=== PATIENT | male | born 1955 | race Caucasian/White ===

== ENCOUNTER 2017-12-09 08:29 | Outpatient (REF) | payer MEDICAID, SELFPAY ==
[2017-12-09 18:42] LABS: HCT 48.7 % (40.0-50.0); HGB 17.4 g/dL (13.5-17.5); Mean Corp. HGB Concentration 35.7 g/dL (32.0-36.0); Mean Corpuscular Hemoglobin 32.6 pg (27.0-33.0); Mean Corpuscular Volume 91.4 fL (80-95); Mean Platelet Volume 10.4 fL (8.0-11.0); Platelet Count 174 x1000/uL (130-400); RBC 5.33 m/cumm (4.50-6.00); White Blood Cell Count 5.02 k/cumm (4.4-10.8)
[2017-12-09 19:31] LABS: ALT 44 U/L (12-78); AST 19 U/L (15-37); Alkaline Phosphatase 89 U/L (46-116); Anion Gap 6.9 mmol/L (3-11); BUN 15 mg/dL (7-18); Bilirubin, Total 0.3 mg/dL (0.2-1.0); CO2 33.1 mmol/L (21.0-32.0); CREATININE 1.16 mg/dL (0.70-1.30); Calcium 8.8 mg/dL (8.5-10.1); Chloride 106 mmol/L (98-107); Cholesterol 209 mg/dL (50-200); Glucose 107 mg/dL (70-100); HDL Cholesterol 47 mg/dL (40-60); LDL CHOLESTEROL 142 mg/dL (<100); Potassium 4.4 mmol/L (3.5-5.1); Sodium 146 mmol/L (136-145); TSH (W/Ref FT4) 2.32 uIU/mL (0.358-3.74); Total Protein 6.9 g/dL (6.4-8.2); Triglyceride 131 mg/dL (30-150); Vitamin B12 750 pg/mL (193-986)
[2017-12-12 08:02] LABS: Vitamin D 25 Total 38.8 ng/ml (30-100)
[2017-12-14 11:55] LABS: Testosterone, Bioavailable 56 ng/dL (40-168); Testosterone, Free 9.85 ng/dL (3.67-13.9); Testosterone, Total 469 ng/dL (240-950)
== END 2017-12-09 08:49 ==
LOC: NCHCN 08:29
PROVIDERS: Visit Provider Nurse Practitioner Family
DX: I10 Essential (primary) hypertension (principal); M51.16 Intervertebral disc disorders with radiculopathy, lumbar region; B35.1 Tinea unguium; B37.2 Candidiasis of skin and nail; E34.9 Endocrine disorder, unspecified; R68.82 Decreased libido; K58.0 Irritable bowel syndrome with diarrhea
CPT/HCPCS: 80053; 80061; 82306; 83721; 84402; 84403; 84410; 85027; 82607; 84443

== ENCOUNTER 2018-03-15 09:55 | Outpatient (CLI) | payer MEDICAID, SELFPAY ==
[2018-03-15 10:05] VITALS: BP 114/82; PULSE 67; RESP 18; TEMP 36.2; O2SAT 97
[2018-03-15 11:17] VITALS: BP 128/88; PULSE 68; RESP 13; O2SAT 98
--- NOTE | 2018-03-15 11:22 | DI.RAD_ITS ---
SYMPTOM/DIAGNOSIS: LUMBAR SPONDYLOSIS, LUMBAR MEDIAL BRANCH BLOCK C-ARM: Fluoroscopy Time: 20.4 sec, 13.67 mGy Fluoroscopy was utilized by Dr. Atkins during the performance of a lumbar steroid injection. Please refer to the procedure report for complete details.
[2018-03-15] MEDS: Omnipaque 240 MG/ML 50 ML BTL IJ (11:27)
--- NOTE | 2018-03-15 11:27 | PDOC.PAIN ---
Pain Clinic Procedure Note Current Active Problems Problem Status Onset Lumbar radiculopathy Acute Lumbar back pain with radiculopathy affecting left lower extremity Acute LUMBAR / SACRAL TRANSFORAMINAL INJECTION KARIN ALVARENGA has been [facility] for a transforaminal nerve root block and steroid injection. COMMENTS: The patient has significant degenerative changes at L5-S1 foraminal stenosis bilaterally at that level and back and left radicular pain. He has had epidural steroid injections in the past with good relief. Patient was interviewed and the medical record reviewed. There were no medical, pharmacologic, radiographic or other structural contraindications to attempting fluoroscopically guided transforaminal nerve root block and epidural steroid injection. Risks and expected side effects as well as potential benefit of the procedure were reviewed and voiced concerns addressed. The printed consent form was signed and witnessed. Standard time-out procedure was performed. Patient was placed in the prone position on the fluoroscopy table and automated blood pressure cuff and pulse oximeter applied. Fluoroscopy was utilized to identify the { /left/ } neural foramen between L5 and S1 patient will follow-up as needed with consider repeating. A skin miryam was made for the needle insertion site. A Chlorhexadine prep was carried out, and sterile drapes were applied. Local anesthesia was achieved in the skin and subcutaneous tissues. A 22 gauge curved tip spinal needle was then inserted, advanced with fluoroscopic guidance into the neural foramen, confirmed on the lateral view. After negative aspiration, 2 ml of Omnipaque 240 was injected confirming position in A/P and lateral views. This showed a good spread of dye transforaminally into the epidural space. There was no vascular update with contrast injection under continuous fluoroscopy and digital substraction.40 mg of Depo-Medrol was injected, followed by 0.5 ml of 1% Xylocaine flush for the nerve root block, as well. There was no unusual discomfort expressed.The needle was withdrawn. The patient tolerated the procedure well. A Band-Aid was applied. Vital signs were stable throughout the procedure and were as recorded in nursing records. If given, dosages of intravenous drugs for anxiolysis and analgesia were documented in nursing records. Follow up plans and appointments were discussed. Post procedure instruction was given as documented in nursing records and patient was discharged in the care of an identified dairy truck driver. COMMENTS: Patient will follow-up as needed. I would need to repeat if he gets good relief or consider interlaminar injection or lumbar medial branch blocks or frequency ablation depending on symptoms presentation. CC: Carolee Irvin
[2018-03-15] MEDS: methylPREDNISolone ACETATE 40 MG/ML VIAL IM (11:28)
[2018-03-15] MEDS: Bupivacaine 0.5% Pres-Free 30 ML VIAL IJ (11:28)
== END 2018-03-15 10:15 ==
PROVIDERS: PCP Nurse Practitioner Family; Visit Provider Anesthesiology Pain Medicine
DX: M54.16 Radiculopathy, lumbar region (principal)
CPT/HCPCS: 64483; 72100; J1030; Q9967

== ENCOUNTER 2019-01-01 12:30 | Outpatient (REF) | payer MEDICAID, SELFPAY ==
[2019-01-01 19:07] LABS: Anion Gap 5.7 mmol/L (3-11); BUN 10 mg/dL (7-18); CO2 32.3 mmol/L (21.0-32.0); CREATININE 0.97 mg/dL (0.70-1.30); Calcium 9.7 mg/dL (8.5-10.1); Calculated LDL 134 mg/dL; Chloride 102 mmol/L (98-107); Cholesterol 217 mg/dL (50-200); Glucose 107 mg/dL (70-100); HDL Cholesterol 57 mg/dL (40-60); Potassium 4.8 mmol/L (3.5-5.1); Sodium 140 mmol/L (136-145); Triglyceride 134 mg/dL (30-150)
== END 2019-01-01 12:50 ==
LOC: NCHCN 12:30
PROVIDERS: PCP Nurse Practitioner Family; Visit Provider Nurse Practitioner Family
DX: I10 Essential (primary) hypertension (principal); E78.5 Hyperlipidemia, unspecified
CPT/HCPCS: 80048; 80061

== ENCOUNTER 2019-09-10 21:56 | Outpatient (REF) | payer MEDICAID, SELFPAY ==
[2019-09-10 19:02] LABS: Abs Immature Grans 0.01 k/cumm (0.0-0.09); Absolute Basophil Count 0.02 k/cumm (0.0-0.2); Absolute Eosinophil Count 0.05 k/cumm (0.0-0.7); Absolute Lymphocyte Count 1.59 k/cumm (1.2-3.4); Absolute Neutrophil Count 5.87 k/cumm (1.2-6.7); Basophils % 0.2; Eosinophils % 0.6; HCT 45.3 % (40.0-50.0); HGB 15.6 g/dL (13.5-17.5); Immature Grans % 0.1 %; Lymphocytes % 19.3; Mean Corp. HGB Concentration 34.4 g/dL (32.0-36.0); Mean Corpuscular Hemoglobin 31.5 pg (27.0-33.0); Mean Corpuscular Volume 91.3 fL (80-95); Mean Platelet Volume 9.1 fL (8.0-11.0); Monocytes % 8.5; Neutrophils % 71.3; Platelet Count 328 x1000/uL (130-400); RBC 4.96 m/cumm (4.50-6.00); RBC Distribution Width 13.2 % (11.8-14.1); White Blood Cell Count 8.24 k/cumm (4.4-10.8)
[2019-09-10 19:03] LABS: ALT 53 U/L (16-63); AST 35 U/L (15-37); Albumin 3.5 g/dL (3.4-5.0); Alkaline Phosphatase 48 U/L (46-116); Anion Gap 8.5 mmol/L (3-11); BUN 7 mg/dL (7-18); Bilirubin, Total 0.6 mg/dL (0.2-1.0); CO2 30.5 mmol/L (21.0-32.0); Calcium 9.5 mg/dL (8.5-10.1); Chloride 98 mmol/L (98-107); Glucose 97 mg/dL (74-106); Potassium 4.5 mmol/L (3.5-5.1); Sodium 137 mmol/L (136-145)
[2019-09-12 19:14] LABS: Calculated LDL 124 mg/dL (<100); Cholesterol 172 mg/dL (<200); HDL Cholesterol 27 mg/dL (40-60); Triglyceride 106 mg/dL (<150)
== END 2019-09-10 22:16 ==
LOC: NCHCN 21:56
PROVIDERS: PCP Nurse Practitioner Family; Visit Provider Nurse Practitioner Family
DX: I10 Essential (primary) hypertension (principal); M79.605 Pain in left leg; E78.5 Hyperlipidemia, unspecified
CPT/HCPCS: 80053; 80061; 85025

== ENCOUNTER 2019-12-18 21:28 | Outpatient (REF) | payer MEDICAID, SELFPAY ==
[2019-12-21 15:53] LABS: Patient Race White; SARS-CoV-2 RNA Undetected (Undetected); SARS-CoV-2 Specimen Source Nasal
== END 2019-12-18 21:48 ==
LOC: NCHCN 21:28
PROVIDERS: PCP Nurse Practitioner Family; Visit Provider Physician Assistant
DX: J02.9 Acute pharyngitis, unspecified (principal); Z20.828 Contact with and (suspected) exposure to other viral communicable diseases
CPT/HCPCS: U0003

== ENCOUNTER 2020-06-17 15:34 | Outpatient (REF) | payer MEDICAID, SELFPAY ==
[2020-06-18 17:30] LABS: PSA, Diagnostic 0.8 ng/mL (0.0-4.5)
== END 2020-06-17 15:35 | disposition home or self-care (01) ==
LOC: NCHCN 15:34
PROVIDERS: PCP Nurse Practitioner Family; Visit Provider Physician Assistant
DX: N40.1 Benign prostatic hyperplasia with lower urinary tract symptoms (principal)
CPT/HCPCS: 84153

== ENCOUNTER 2022-08-19 12:44 | Emergency (ER) | payer MEDICAID, SELFPAY ==
[2022-08-19 12:54] VITALS: BP 134/75; PULSE 70; RESP 18; TEMP 35.9; O2SAT 95
--- NOTE | 2022-08-19 13:15 | DI.CT_ITS ---
Exam(s) CT NECK W EXAM: CT NECK W INDICATION: swelling and redn. COMPARISON: No exams were available for comparison TECHNIQUE: FINDINGS: VISUALIZED PARANASAL SINUSES: Unremarkable. NASOPHARYNX: Unremarkable OROPHARYNX: There is a large right-sided tonsillar abscess measuring approximately 3.5 x 3.5 cm and c ausing narrowing of the airway. The soft tissue swelling does extend somewhat posteriorly towards th e prevertebral region but is predominately peritonsillar abscess. HYPOPHARYNX: Right-sided soft tissue swelling contiguous with the large right-sided tonsillar abscess . VOCAL CORDS: Unremarkable. No masses evident. Subglottic airway appears unremarkable. THYROID GLAND: There is a 1.5 x 1.0 cm cyst or nodule in the left thyroid lobe. No nodules in the is thmus and right thyroid lobe. SALIVARY GLANDS: Unremarkable. No significant findings in the parotid and submandibular glands. LYMPH NODES: There is no adenopathy evident in the neck and supraclavicular regions. OTHER: VISUALIZED LUNG APICES: No significant findings. IMPRESSION: 1. Large right tonsillar abscess. Significant airway narrowing at this level. 2. Other findings as above. Report called by myself to ER provider. RADIATION DOSE DELIVERED: 309.29mGy.cm Total DLP DATA REPOSITORY: All CT scans at this facility are submitted to the National Radiology Data Registry (NRDR) Dose Index Registry (DIR) with the [employer] ([employer]). RADIATION OPTIMIZATION: All CT scans at this facility use at least one of these dose optimization te chniques: automated exposure control; mA and/or kV adjustment per patient size (includes targeted exa ms where dose is matched to clinical indication); or iterative reconstruction.
[2022-08-19 13:53] LABS: Abs Immature Grans 0.03 10^3/uL (0.0-0.06); Absolute Basophil Count 0.06 10^3/uL (0.0-0.2); Absolute Eosinophil Count 0.13 10^3/uL (0.0-0.7); Absolute Lymphocyte Count 0.95 10^3/uL (1.2-3.4); Absolute Monocyte Count 0.71 10^3/uL (0.1-0.8); Absolute Neutrophil Count 7.52 10^3/uL (1.2-6.7); Basophils % 0.6; Eosinophils % 1.4; HCT 42.7 % (40.0-50.0); HGB 15.3 g/dL (13.5-17.5); Immature Grans % 0.3; Lymphocytes % 10.1; MCH 31.5 pg (27.0-33.0); MCHC 35.8 % (32.0-36.0); MCV 88 fL (80-95); MPV 9.1 fL (8.0-11.0); Monocytes % 7.6; Platelet Count 205 10^3/uL (130-400); RBC 4.85 10^6/uL (4.36-5.78); RDW 11.6 % (11.8-14.1); RDW-SD 37.3 fL
[2022-08-19] MEDS: Dexamethasone 10 MG/ML VIAL IVP (13:56)
[2022-08-19] MEDS: Normal Saline 500 ML 1000 ML IV (13:57)
[2022-08-19] MEDS: CLINDAMYCIN 900 MG/50 ML BAG 50 MG IVPB (13:58)
[2022-08-19 14:07] LABS: ALT 14 U/L (16-63); AST 10 U/L (15-37); Albumin 3.5 g/dL (3.4-5.0); Alkaline Phosphatase 75 U/L (46-116); Anion Gap 6.6 mmol/L (3-11); BUN 5 mg/dL (7-18); Bilirubin, Total 1.1 mg/dL (0.2-1.0); CO2 32.4 mmol/L (21.0-32.0); CREATININE 0.8 mg/dL (0.70-1.30); Calcium 9.1 mg/dL (8.5-10.1); Chloride 103 mmol/L (98-107); Estimated GFR 98.83 (mL/min/1.73m2); Glucose 125 mg/dL (74-106); Potassium 3.6 mmol/L (3.5-5.1); Sodium 142 mmol/L (136-145); Total Protein 7.2 g/dL (6.4-8.2)
--- NOTE | 2022-08-19 14:36 | ED.GENADUL_ITS ---
Discharge Plan Disposition Patient Disposition: Home Discharge Details Clinical Impression: Abscess, peritonsillar Primary Care Provider: Carolee Irvin ED Provider: Ramone Hope Home Meds and New Rx's Prescriptions: No Action clonazepam 1 mg tablet 1 mg PO BID lisinopril 20 mg tablet 20 mg PO DAILY mirtazapine 15 mg tablet 30 mg PO DAILY modafinil [Provigil] 100 mg tablet 100 mg PO DAILY Men 50 Plus Multivitamin 300-600-300 mcg tablet 1 tab PO DAILY omega-3 fatty acids [Fish Oil Concentrate] 1,000 mg capsule 1,000 mg PO DAILY carbidopa-levodopa 50-200 mg tablet extended release 1 tab PO QHS tamsulosin [Flomax] 0.4 mg capsule 0.4 mg PO QHS Discharge Instructions Instructions: Abscess (ED) Additional Instructions: Patient medications: Augmentin 875/125mg PO twice a day for 12 days Prednisone 50 mg p.o. once a day in the morning for 2 days starting on 08/20/22 Ibuprofen 600 mg PO Q6H as needed pain and discomfort Patient should return immediately to the emergency department for any significant increase of swelling, fever chills, difficulty swallowing or lyndsey thing. We are otherwise recommending infirmary/medical checks daily for the next 4 days and then a recheck of his throat when antibiotics are fully completed. Discharge Data Discharge Date/Time-TO BE ENTERED AT DEPARTURE: 08/19/22 17:40 Medical Decision Making <ELENA Guzman - Last Filed: 08/20/22 08:13> Patient alert and oriented, she has suspected peritonsillar abscess on the right, his uvula is slightly deviated and swollen He is maintaining his airway, he has slightly muffled phonation, he has no trismus on exam No leukocytosis, labs within normal limits Pending CT imaging at this time <Ramone oHpe NP - Last Filed: 08/19/22 23:03> Patient alert and oriented, she has suspected peritonsillar abscess on the right, his uvula is slightly deviated and swollen He is maintaining his airway, he has slightly muffled phonation, he has no trismus on exam No leukocytosis, labs within normal limits Pending CT imaging at this time 1600-patient signed out to me pending CT imaging for suspected peritonsillar abscess. Patient is still maintaining airway has no change in condition based on signout. Reviewed radiological imaging and spoke with radiologist that does show a significant peritonsillar abscess and an incidental finding of a thyroid nodule. Discussed with attending physician Dr. Beatriz Way about I&D of peritonsillar abscess. Please see his procedure note for procedure. Patient had approximately 3 mL of output. Patient observed after procedure and had no worsening of condition and airway remained patent and intact. Patient placed on Augmentin and prednisone for the next couple days and discussed return and follow-up precautions with [facility]. After discussion of diagnosis and plan of care patient has no further needs, questions, or concerns and states clear understanding to return to the emergency department for any worsening symptoms. This documentation was generated using [employer] Interactiveation system, please disregard any oddities of phrase or misspellings. Imaging Data Radiologic Study: Imaging: CT Scan Radiologist's impression: Exam(s) CT NECK W EXAM: CT NECK W INDICATION: swelling and redn. COMPARISON: No exams were available for comparison TECHNIQUE: FINDINGS: VISUALIZED PARANASAL SINUSES: Unremarkable. NASOPHARYNX: Unremarkable OROPHARYNX: There is a large right-sided tonsillar abscess measuring approximately 3.5 x 3.5 cm and causing narrowing of the airway. The soft tissue swelling does extend somewhat posteriorly towards the prevertebral region but is predominately peritonsillar abscess. HYPOPHARYNX: Right-sided soft tissue swelling contiguous with the large right- sided tonsillar abscess. VOCAL CORDS: Unremarkable. No masses evident. Subglottic airway appears unremarkable. THYROID GLAND: There is a 1.5 x 1.0 cm cyst or nodule in the left thyroid lobe. No nodules in the isthmus and right thyroid lobe. SALIVARY GLANDS: Unremarkable. No significant findings in the parotid and submandibular glands. LYMPH NODES: There is no adenopathy evident in the neck and supraclavicular regions. OTHER: VISUALIZED LUNG APICES: No significant findings. IMPRESSION: 1. Large right tonsillar abscess. Significant airway narrowing at this level. 2. Other findings as above. Lab Data Lab results reviewed: Yes I reviewed the patient's lab results. HPI <ELENA Guzman - Last Filed: 08/20/22 08:13> General Date/Time Provider Initiated Documentation: 08/19/22 13:18 . HPI Narrative: This 66-year-old male with history of Parkinson's with presents with report of difficulty swallowing which he reports started today. He states his throat is scratchy this week. He denies any chest pain or shortness of breath. He is able to maintain secretions. Denies stiff neck or headache. Denies any fever or chills. States he attempted to eat lunch today and had difficulty which is why he presents. Denies any new medications or injury. Related Data Home Medications Medication Instructions Recorded Confirmed clonazepam 1 mg tablet 1 mg PO BID 12/08/17 03/15/18 lisinopril 20 mg tablet 20 mg PO DAILY 12/08/17 03/15/18 mirtazapine 15 mg tablet 30 mg PO DAILY 12/08/17 03/15/18 modafinil 100 mg tablet (Provigil) 100 mg PO DAILY 12/08/17 03/15/18 carbidopa ER 50 mg-levodopa 200 mg 1 tab PO QHS 02/04/21 tablet,extended release ecpfzfya-cuu-zdsus acid 300 1 tab PO DAILY 02/04/21 mcg-lycopene 600 mcg-lutein 300 mcg tablet (Men 50 Plus Multivitamin) omega-3 fatty acids 1,000 mg 1,000 mg PO DAILY 02/04/21 capsule (Fish Oil Concentrate) tamsulosin 0.4 mg capsule (Flomax) 0.4 mg PO QHS 02/04/21 Allergies Allergy/AdvReac Type Severity Reaction Status Date / Time atorvastatin AdvReac Severe Psychosis Verified 03/15/18 10:05 General Stated Complaint: ThroatFB BENJAMIN: 3 PFSH <ELENA Guzman - Last Filed: 08/20/22 08:13> All Active Problems (Updated 08/19/22 @ 17:36 by Ramone Hpoe NP) Abscess, peritonsillar (Acute) Lumbar radiculopathy (Acute) Lumbar back pain with radiculopathy affecting left lower extremity (Acute) Medical History (Updated 08/19/22 @ 17:36 by Ramone Hope NP) Arthritis Back pain BPH with obstruction/lower urinary tract symptoms Cutaneous candidiasis Decreased libido Depression ETOH abuse HTN (hypertension) Hx of head injury Hx of neck injury Irritable bowel syndrome with diarrhea Leg pain Lumbar disc herniation with radiculopathy Migraine headache Neck pain Onychomycosis of toenail Shoulder pain Tobacco abuse Urinary retention Social History (Updated 12/19/17 @ 12:16 by Ami Dover RN) Smoking/Tobacco Use Status: Current every day Smoking risk assessment performed?: Yes Alcohol Intake: former Drug use: Never Substance use type: does not use Housing: house What type of physical activity do you participate in: additional Details: house chores Seatbelt use: always Helmet use: Yes Firearms in home: No Course <ELENA Guzman - Last Filed: 08/20/22 08:13> Vital Signs Vital signs: Vital Signs Temperature 35.9 C L 08/19/22 12:54 Pulse 70 08/19/22 12:54 Respiratory Rate 18 08/19/22 12:54 Blood Pressure 134/75 08/19/22 12:54 Pulse Oximetry 95 08/19/22 12:54 Temperature 35.9 C L 08/19/22 12:54 Temperature Source Temporal Artery Scan 08/19/22 12:54 Pulse 70 08/19/22 12:54 Respiratory Rate 18 08/19/22 12:54 Respiratory Effort Normal 08/19/22 13:49 Respiratory Pattern Normal 08/19/22 13:48 Blood Pressure 134/75 08/19/22 12:54 Blood Pressure Position Sitting 08/19/22 12:54 Pulse Oximetry 95 08/19/22 12:54 Oxygen Delivery Method Room Air 08/19/22 12:54 Oxygen Flow Rate 0 08/19/22 12:54 Lab/Test Results Lab/Test Results: Laboratory Tests Range/Units 08/19/22 08/19/22 13:45 13:45 WBC (4.4-10.8) 10^3/uL 9.40 RBC (4.36-5.78) 10^6/uL 4.85 Hgb (13.5-17.5) g/dL 15.3 Hct (40.0-50.0) % 42.7 MCV (80-95) fL 88 MCH (27.0-33.0) pg 31.5 MCHC (32.0-36.0) % 35.8 RDW (11.8-14.1) % 11.6 L Plt Count (130-400) 10^3/uL 205 MPV (8.0-11.0) fL 9.1 Immature Gran % 0.3 Neutrophils % 80.0 Lymphocytes % 10.1 Monocytes % 7.6 Eosinophils % 1.4 Basophils % 0.6 Nucleated RBC % (0.0-0.3) % 0.0 Absolute Neutrophils (1.2-6.7) 10^3/uL 7.52 H Absolute Lymphocytes (1.2-3.4) 10^3/uL 0.95 L Absolute Monocytes (0.1-0.8) 10^3/uL 0.71 Absolute Eosinophils (0.0-0.7) 10^3/uL 0.13 Absolute Basophils (0.0-0.2) 10^3/uL 0.06 Sodium (136-145) mmol/L 142 Potassium (3.5-5.1) mmol/L 3.6 Chloride (98-107) mmol/L 103 Carbon Dioxide (21.0-32.0) mmol/L 32.4 H Anion Gap (3-11) mmol/L 6.6 BUN (7-18) mg/dL 5 L Creatinine (0.70-1.30) mg/dL 0.8 Est GFR (CKD-EPI 2020) (mL/min/1.73m2) 98.83 Glucose (74-106) mg/dL 125 H Calcium (8.5-10.1) mg/dL 9.1 Total Bilirubin (0.2-1.0) mg/dL 1.1 H AST (15-37) U/L 10 L ALT (16-63) U/L 14 L Alkaline Phosphatase (46-116) U/L 75 Total Protein (6.4-8.2) g/dL 7.2 Albumin (3.4-5.0) g/dL 3.5 Sign Out <ELENA Guzman - Last Filed: 08/20/22 08:13> Sign Out Data: Sign Out Comment: pending ct interpretation and ENT consultation Last updated by Dori Benavides PA at 08/19/22 16:04
[2022-08-19] MEDS: Omnipaque 350 MG/ML 100 ML BTL IJ (15:16)
[2022-08-19] MEDS: Normal Saline - Diluent 50 ML VIAL IJ (15:17)
[2022-08-19 16:04] VITALS: BP 137/98; PULSE 58; TEMP 36.7
--- NOTE | 2022-08-19 16:58 | W.ED.PROC ---
Date of service: 08/19/22 Time of Service: 16:58 Procedures Abscess I/D Site: Other (Peritonsillar abscess) Side (if applicable): Right Local Anesthetic: Other Anesthetic (Benzocaine spray) Technique: Needle Aspiration Amount of fluid expressed (mL): 4 Irrigation: No Packing used?: None Complications: Pain
[2022-08-19] MEDS: Amoxicillin 875/Clav. 125 TAB PO (17:24)
[2022-08-19 17:34] VITALS: BP 148/74; PULSE 85; RESP 18; TEMP 37; O2SAT 96
== END 2022-08-19 17:40 | disposition home or self-care (01) ==
PROVIDERS: Physician Assistant; Emergency Provider Nurse Practitioner Family; PCP Nurse Practitioner Family
DX: J36 Peritonsillar abscess (principal)
CPT/HCPCS: 36415; 42700; 70491; 80053; 96365; 96375; 99285; 85025; 99284; J1100; J3490